=== PATIENT | female | born 1940 | race Caucasian/White ===

== ENCOUNTER → 2023-12-09 19:30 | Outpatient (REF) | payer OTHER, SELFPAY ==
[2023-12-10 13:19] LABS: Urine Albumin Negative (Neg - Trace); Urine Bilirubin Negative (Negative); Urine Character Clear (Clear); Urine Color Yellow; Urine Glucose Negative (Negative); Urine Ketone Negative (Negative); Urine Leukocyte Negative (Negative); Urine Nitrite Positive (Negative); Urine Occult Blood Negative (Negative); Urine Urobilinogen Negative (Neg - 1+)
[2023-12-10 13:32] LABS: Urine Bacteria Many (Negative)
== END ==
LOC: OLABPATH 19:30
PROVIDERS: ATTENDING PHYSICIAN Internal Medicine
DX: F03.90 Unspecified dementia, unspecified severity, without behavioral disturbance, psychotic disturbance, mood disturbance, and anxiety (principal); F41.1 Generalized anxiety disorder
CPT/HCPCS: 36415; 81003; 81015; 87077; 87086; 87186

== ENCOUNTER → 2023-12-10 12:56 | Outpatient (REF) | payer OTHER, SELFPAY ==
[2023-12-10 13:16] LABS: % Basophils 0.8 % (0-2); % Eosinophils 3.2 % (0-6); % Immature Granulocytes 0.2 % (0-0.5); % Lymphocytes 35.4 % (20.5-51.1); % Monocytes 9.7 % (1.7-9.3); % Neutrophils 50.7 % (42.2-75.2); Absolute Eosinophils 0.2 10^3/uL (0-0.7); Absolute Lymphocytes 1.9 10^3/uL (1.2-3.4); Absolute Monocytes 0.5 10^3/uL (0.1-0.6); Absolute Neutrophils 2.7 10^3/uL (1.4-6.5); Hematocrit 37.4 % (37.0-47.0); Hemoglobin 12.5 g/dL (12.0-16.0); Mean Corp Hgb Conc. 33.4 g/dL (33.0-37.0); Mean Corpuscular Volume 89.7 fL (81.0-99.0); Mean Platelet Volume 11.2 fL (7.4-10.4); Nucleated Red Blood Cells % 0 %; Platelet Count 246 10^3/uL (130-400); Red Blood Cell Count 4.17 10^6/uL (4.20-5.40); Red Cell Dist. Width 14.4 % (11.5-14.5); White Blood Cell Count 5.3 10^3/uL (4.8-10.8)
[2023-12-10 13:47] LABS: ALT (SGPT) 16 U/L (0-35); AST (SGOT) 23 U/L (14-36); Albumin 3.8 g/dl (3.5-5.0); Alkaline Phosphatase 75 U/L (38-126); Blood Urea Nitrogen 22 mg/dl (7-17); Calcium 9.5 mg/dl (8.4-10.2); Carbon Dioxide 29 mmol/L (22-30); Chloride 101 mmol/L (98-107); Glucose 115 mg/dl (70-99); Potassium 4.4 mmol/L (3.5-5.1); Sodium 136 mmol/L (135-145); Total Bilirubin 1.1 mg/dl (0.2-1.3); Total Protein 6.6 g/dl (6.3-8.2); eGFR > 60.00
== END ==
LOC: OLABPATH 12:56
PROVIDERS: ATTENDING PHYSICIAN Internal Medicine
DX: F03.90 Unspecified dementia, unspecified severity, without behavioral disturbance, psychotic disturbance, mood disturbance, and anxiety (principal); F41.1 Generalized anxiety disorder
CPT/HCPCS: 36415; 80053; 85025

== ENCOUNTER → 2023-12-15 06:00 | Outpatient (REF) | payer OTHER, SELFPAY ==
[2023-12-16 10:02] LABS: Urine Character Very Cloudy (Clear); Urine Color Yellow
[2023-12-16 10:03] LABS: Urine Albumin Negative (Neg - Trace); Urine Bacteria Many (Negative); Urine Bilirubin Negative (Negative); Urine Glucose Negative (Negative); Urine Ketone Negative (Negative); Urine Leukocyte Trace (Negative); Urine Nitrite Positive (Negative); Urine Occult Blood Negative (Negative); Urine Red Blood Cell 0-2 /HPF (0-2); Urine Urobilinogen Negative (Neg - 1+)
== END ==
LOC: OLABPATH 06:00
PROVIDERS: ATTENDING PHYSICIAN Internal Medicine
DX: N39.0 Urinary tract infection, site not specified (principal)
CPT/HCPCS: 36415; 81003; 81015; 87077; 87086; 87186

== ENCOUNTER → 2024-02-10 12:42 | Outpatient (REF) | payer OTHER, SELFPAY ==
[2024-02-10 13:24] LABS: % Basophils 0.9 % (0-2); % Eosinophils 3.7 % (0-6); % Immature Granulocytes 0.2 % (0-0.5); % Lymphocytes 38.9 % (20.5-51.1); % Monocytes 10.2 % (1.7-9.3); % Neutrophils 46.1 % (42.2-75.2); Absolute Eosinophils 0.2 10^3/uL (0-0.7); Absolute Lymphocytes 1.8 10^3/uL (1.2-3.4); Absolute Monocytes 0.5 10^3/uL (0.1-0.6); Absolute Neutrophils 2.1 10^3/uL (1.4-6.5); Hemoglobin 12.7 g/dL (12.0-16.0); Mean Corp Hgb Conc. 32.6 g/dL (33.0-37.0); Mean Corpuscular Hgb 30.2 pg (27.0-31.0); Mean Corpuscular Volume 92.6 fL (81.0-99.0); Nucleated Red Blood Cells % 0 %; Platelet Count 208 10^3/uL (130-400); Red Blood Cell Count 4.21 10^6/uL (4.20-5.40); White Blood Cell Count 4.6 10^3/uL (4.8-10.8)
[2024-02-10 14:12] LABS: ALT (SGPT) 32 U/L (0-35); AST (SGOT) 31 U/L (14-36); Albumin 4.2 g/dl (3.5-5.0); Alkaline Phosphatase 76 U/L (38-126); Blood Urea Nitrogen 28 mg/dl (7-17); Calcium 10.1 mg/dl (8.4-10.2); Carbon Dioxide 28 mmol/L (22-30); Chloride 103 mmol/L (98-107); Glucose 98 mg/dl (70-99); Potassium 4.5 mmol/L (3.5-5.1); Sodium 137 mmol/L (135-145); Total Bilirubin 1.1 mg/dl (0.2-1.3); Total Protein 7.1 g/dl (6.3-8.2); eGFR > 60.00
[2024-02-10 16:34] LABS: TSH 3.26 uIU/ml (0.47-4.68)
== END ==
LOC: OLABPATH 12:42
PROVIDERS: ATTENDING PHYSICIAN Internal Medicine
DX: D64.9 Anemia, unspecified (principal)
CPT/HCPCS: 36415; 80053; 84443; 85025

== ENCOUNTER → 2024-04-04 11:38 | Outpatient (REF) | payer OTHER, SELFPAY ==
[2024-04-04 12:14] LABS: Urine Albumin Negative (Neg - Trace); Urine Bilirubin Negative (Negative); Urine Character Slightly Cloudy (Clear); Urine Color Yellow; Urine Glucose Negative (Negative); Urine Ketone Negative (Negative); Urine Leukocyte Negative (Negative); Urine Nitrite Positive (Negative); Urine Occult Blood Negative (Negative); Urine Specific Gravity 1.015 (<1.030); Urine Urobilinogen Negative (Neg - 1+)
== END ==
LOC: OLABPATH 11:38
PROVIDERS: ATTENDING PHYSICIAN Internal Medicine
DX: N39.0 Urinary tract infection, site not specified (principal)
CPT/HCPCS: 81003; 87086

== ENCOUNTER 2024-08-22 08:50 | Emergency (ER) | payer OTHER, SELFPAY ==
[2024-08-22 08:54] VITALS: BP 102/62
[2024-08-22 08:59] VITALS: BP 107/53
[2024-08-22 09:00] VITALS: BP 107/53
[2024-08-22 09:04] VITALS: BMI 27.3
--- NOTE | 2024-08-22 09:05 | ED.GENMED ---
History of Present Illness
General
Chief Complaint: Fainting Sensation
Source: patient
Time Seen by Provider: 08/22/24 08:56
History of Present Illness
History of Present Illness:
84-year-old female sent to the emergency room from assisted living where she was observed to have a choking episode while eating breakfast. Reportedly she did pass out. She is currently back to her baseline. She offers no complaints at this time
but does have dementia and so history seems somewhat limited. She denies feeling short of breath at this time. Patient does have a pacemaker.
Past History
Past History
ED Past Medical History: Psychiatric and Other (Dementia)
ED Past Surgical History: None
Social History
Tobacco: Non-smoker
Phy Exam
Physical Exam
Physical Exam:
General: Awake, Alert, Oriented X2. No acute distress.
Vitals: unremarkable
Head: Atraumatic
Eyes: Pupils equal, EOMI
Throat: Airway intact, no exudates
Neck: Trachea midline
Lungs: Clear and equal b/l
Heart: Regular rate, no murmurs
Abd: Soft, Nontender, No pulsatile mass
Neuro: Nonfocal
Skin: Warm, dry, no rash
Extremities: pulses equal b/l, no edema
Course
Orders/Labs/Results
Orders:
Orders
08/22/24 08:55
Electrocardiogram (*1) Urgent
Reason for Study: Syncope
08/22/24 08:56
EKG- Treatment ONCE
08/22/24 09:04
CR Chest - 2 Views Urgent
Comment:
Reason For Exam: choking episode
08/22/24 09:15
Basic Metabolic Panel Urgent
Complete Blood Count/No Diff Urgent
Abnormal Lab Results
08/22/24
09:15
RBC 4.04 L 10^6/uL
(4.20-5.40)
MCH 32.7 H pg
(27.0-31.0)
BUN 27 H mg/dl
(7-17)
Glucose 119 H mg/dl
(70-99)
08/22/24 09:15
08/22/24 09:15
Vital Signs
Initial and Last Documented VS:
Initial Vital Signs
BP
102/62
08/22/24 08:54
Last Documented Vital Signs
Temp Pulse Resp BP Pulse Ox
97.7 F 60 15 102/49 96
08/22/24 08:59 08/22/24 10:30 08/22/24 10:30 08/22/24 10:01 08/22/24 10:30
MDM/Problems Addressed
Differential Diagnosis Includes:
Vasovagal event, dysrhythmia, anemia
MDM/Problems Addressed:
Patient evidently had a coughing or choking episode today. This was followed by an episode of near syncope. Upon arrival here to the emergent the patient seems to be at her baseline. Work appears unremarkable. She is not hypoxic. Chest x-ray
evidence of infiltrate or aspiration. Patient stable for discharge back to her facility.
*Radiology
Radiology exam reviewed: preliminary read by ED provider (No acute abnormality noted)
*Pulse Oximetry
Patient hypoxic: no
*EKG
Interpreted by ED Provider?: Yes
Comparison EKG: changes noted (Now atrial paced)
Heart Rate: 60
Rate: normal
Rhythm: other (Atrial paced)
QRS Pattern: right bundle branch block
Ischemia: non-specific ST changes
*Molded Goods Spot Picker Interpretation
Rate: normal
Interpretation: abnormal
Rhythm: other (Atrial paced)
*Critical Care Note
Total Time (30-74mins, 75-104mins- exclusive of procedures): Not Applicable
ED Attending Note
-
Portions of this chart may have been created with voice recognition software.� Occasional wrong word or��sound alike� substitutions may have occurred due to the inherent limitations of voice recognition software.
Discharge Plan
Departure
Patient Disposition: Home (Routine Discharge)
Date of Disposition: 08/22/24
Time of Disposition: 10:26
Patient with high blood pressure during this ER visit?: No
Condition: Good
Discharge Problem:
Syncope, Choking
Instructions: Syncope (Fainting) (DC), Choking
Prescriptions:
No Action
acetaminophen 500 mg Tablet
1,000 mg PO Q8HPRN PRN (Reason: mild pain/fever)
ascorbic acid (vitamin C) [Vitamin C] 500 mg Tablet
500 mg PO DAILY
montelukast 10 mg Tablet
10 mg PO HS
azelastine 137 mcg (0.1 %) Aerosol,[place]
1 spray INTRANASAL BID
cholecalciferol (vitamin D3) [Vitamin D3] 25 mcg (1,000 unit) Capsule
25 mcg PO DAILY
escitalopram oxalate 20 mg Tablet
30 mg PO DAILY
guaifenesin [Aliza-Tussin] 100 mg/5 mL Liquid
100 mg PO Q6HPRN PRN (Reason: cough)
carboxymethylcellulose sodium [Refresh Tears] 0.5 % Drops
1 drp BOTH EYES DAILYPRN PRN (Reason: dry eye)
losartan-hydrochlorothiazide 100-25 mg tablet
1 tab PO DAILY
ferrous sulfate [FeroSul] 325 mg (65 mg iron) tablet
325 mg PO Q48H
hydralazine 50 mg tablet
50 mg PO BID
Referrals:
Rodney Cartagena DO [Family Provider] -
Interventions
Interventions:
*Risk Screen - Suicide Last Done: 08/22/24 08:59
*General Assessment Last Done: 08/22/24 09:30
*Neglect/Abuse Screening Last Done: 08/22/24 08:59
ED- Fall Risk Assessment Last Done: 08/22/24 09:04
*ED COVID-19 Vaccine History Last Done: 08/22/24 10:52
*Nursing Disposition Last Done: 08/22/24 10:52
ED- Cardiac Assessment Last Done: 08/22/24 09:04
ED- Neurological Assessment Last Done: 08/22/24 09:04
Discharge Date and Time
Discharge Date/Time: 08/22/24 10:53
Print Language: ESTONIAN
[2024-08-22 09:27] LABS: Hematocrit 38.7 % (37.0-47.0); Hemoglobin 13.2 g/dL (12.0-16.0); Mean Corp Hgb Conc. 34.1 g/dL (33.0-37.0); Mean Corpuscular Hgb 32.7 pg (27.0-31.0); Mean Corpuscular Volume 95.8 fL (81.0-99.0); Mean Platelet Volume 9.8 fL (7.4-10.4); Platelet Count 206 10^3/uL (130-400); Red Blood Cell Count 4.04 10^6/uL (4.20-5.40); Red Cell Dist. Width 13.1 % (11.5-14.5); White Blood Cell Count 6.9 10^3/uL (4.8-10.8)
[2024-08-22 09:42] LABS: Blood Urea Nitrogen 27 mg/dl (7-17); Calcium 9.9 mg/dl (8.4-10.2); Carbon Dioxide 26 mmol/L (22-30); Chloride 102 mmol/L (98-107); Estimated Creatinine Clearance 56 ml/min; Glucose 119 mg/dl (70-99); Potassium 4.3 mmol/L (3.5-5.1); Sodium 140 mmol/L (135-145); eGFR > 60.00
[2024-08-22 10:01] VITALS: BP 102/49
== END 2024-08-22 10:53 | disposition home or self-care (01) ==
LOC: EMR 08:50
PROVIDERS: EMERGENCY PHYSICIAN Emergency Medicine; FAMILY PHYSICIAN Internal Medicine
DX: R55 Syncope and collapse (principal); R09.89 Other specified symptoms and signs involving the circulatory and respiratory systems; F03.90 Unspecified dementia, unspecified severity, without behavioral disturbance, psychotic disturbance, mood disturbance, and anxiety; Z95.0 Presence of cardiac pacemaker
CPT/HCPCS: 99285; 71046; 80048; 85027; 93005

== ENCOUNTER → 2024-11-24 14:04 | Outpatient (REF) | payer OTHER, SELFPAY ==
[2024-11-24 15:01] LABS: Blood Urea Nitrogen 30 mg/dl (7-17); Calcium 8.8 mg/dl (8.4-10.2); Carbon Dioxide 22 mmol/L (22-30); Chloride 104 mmol/L (98-107); Glucose 101 mg/dl (70-99); Sodium 136 mmol/L (135-145); eGFR > 60.00
== END ==
LOC: OLABPATH 14:04
PROVIDERS: ATTENDING PHYSICIAN Internal Medicine
DX: R79.0 Abnormal level of blood mineral (principal)
CPT/HCPCS: 36415; 80048

== ENCOUNTER 2025-03-29 10:00 | Emergency (ER) | payer OTHER, SELFPAY ==
[2025-03-29] VITALS (12 sets, daily range): BP systolic 104–136; BP diastolic 42–70; PULSE 66–80; BMI 29.0
--- NOTE | 2025-03-29 10:29 | ED.GENMED ---
History of Present Illness
General
Chief Complaint: Fainting/Passed Out
Source: patient and assisted
Exam Limitations: none
Time Seen by Provider: 03/29/25 10:11
Nursing documentation reviewed up to this point in time: agreed with
History of Present Illness
History of Present Illness:
The patient is an 85-year-old female with hx dementia who presents to the emergency department via EMS after syncopal event this morning. History somewhat limited due to patient's dementia however did contact nurse at facility who states that
patient was sitting at the breakfast table when she lost consciousness. They state that she was unresponsive for almost 5 minutes, however she was breathing. She had a weak pulse at the time. She did apparently have an episode of vomiting shortly
after the incident, although the timing of this remains uncertain. Currently�patient has no complaints. She specifically denies any headache, chest pain, shortness of breath, abdominal pain. She does report mild nausea
No trauma or head injury occurred during the event.
She reports having had a normal morning, including a shower and eating breakfast consisting of biscuits and butter. While sitting at the table, she suddenly passed out without any recollection of the event.
Past History
Past History
ED Past Medical History: Psychiatric and Other (Dementia)
ED Past Surgical History: None
Social History
Tobacco: Non-smoker
Review of Systems
Review of Systems
Unable to obtain full review of systems at this time due to: dementia
Phy Exam
Physical Exam
Physical Exam:
Vitals: Patient's vital signs are stable. Afebrile
General: Patient is well appearing, no acute distress
Skin: Warm and dry, no rashes or lesions
Head: Normocephalic, atraumatic
Eyes: Sclera nonicteric. EOMs intact. No nystagmus.
Throat: Protecting airway
Neck: Normal ROM, no cervical spine tenderness, no meningismus. No JVD
Cardiac: Regular rate and rhythm, no murmurs. 2+ Palpable radial pulses bilaterally.
Pulm: Normal respiratory effort, no wheezes, rales, rhonchi heard on exam
.
Abdomen:Abdomen soft and nontender
Extremities: No evidence of cyanosis or edema. Palpable DP pulses bilaterally.
Neuro: AAOx3. Grossly intact. Strength 5/5 in bilateral upper and lower extremiteis
Psychiatric: Normal affect.
Course
Orders/Labs/Results
Orders:
Orders
03/29/25 10:14
EKG [Electrocardiogram (*1)] Urgent
Reason for Study: Syncope
03/29/25 10:15
EKG- Treatment ONCE
03/29/25 10:18
Complete Blood Count/With Diff Urgent
Urinalysis Reflex To Culture Urgent
Date Specimen was Collected: 03/29/25
Time Specimen was Collected: 10:15
Urine Microscopic Reflex Cult Urgent
Urine Culture Urgent
SARINA Source: U
Specimen Description:
Date Specimen was Collected: 03/29/25
Time Specimen was Collected: 10:15
03/29/25 10:29
pacemaker [Interrogate Pacemaker- Treatment] ONCE
03/29/25 12:19
Comprehensive Metabolic Panel Urgent
Troponin I Urgent
03/29/25 14:11
US Abdomen Complete/Upper Urgent
Comment:
Reason For Exam: LFT elevation, vomiting
03/29/25 16:02
Orthostatic VS- Treatment ONCE
03/29/25 16:27
Cephalexin Monohydrate [Keflex] 500 mg PO NOW STA
Abnormal Lab Results
03/29/25 03/29/25
10:18 12:19
RBC 3.89 L 10^6/uL
(4.20-5.40)
Hct 36.9 L %
(37.0-47.0)
MCH 32.6 H pg
(27.0-31.0)
MPV 10.8 H fL
(7.4-10.4)
Carbon Dioxide 31 H mmol/L
(22-30)
BUN 22 H mg/dl
(7-17)
Glucose 129 H mg/dl
(70-99)
AST 156 H U/L
(14-36)
ALT 216 H U/L
(0-35)
Urine Nitrite (Reflex) Positive A
(Negative)
Leukocyte Esterase Rfl 1+ A
(Negative)
Urine RBC 3-6 A /HPF
(0-2)
Urine WBC (Reflex) 11-15 A /HPF
(0-5)
Urine Bacteria (Reflex) Many A
(Negative)
Urine Albumin (Reflex) 3+ A
(Neg - Trace)
03/29/25 10:18
03/29/25 12:19
Vital Signs
Initial and Last Documented VS:
Initial Vital Signs
Temp Pulse Resp BP Pulse Ox
97.7 F 79 16 109/42 96
03/29/25 10:07 03/29/25 10:07 03/29/25 10:07 03/29/25 10:07 03/29/25 10:07
Last Documented Vital Signs
Temp Pulse Resp BP Pulse Ox
97.7 F 78 18 136/70 94
03/29/25 10:07 03/29/25 16:12 03/29/25 16:12 03/29/25 16:12 03/29/25 16:07
MDM/Problems Addressed
Differential Diagnosis Includes:
Not limited to: Cardiac arrhythmia, pacemaker malfunction, vasovagal syncope, hypoglycemia, seizure, orthostatic hypotension, etc.
MDM/Problems Addressed:
An 85-year-old female who presents to the emergency department following a syncopal episode at a assisted. She also experienced one episode of vomiting but did not sustain any traumatic injury. Upon arrival, she was alert, oriented, and
presented with normal vital signs.
Laboratory evaluations included a CBC, which showed no significant abnormalities, and a chemistry panel that indicated mild dehydration via elevated BUN and transaminitis of unclear etiology. An EKG exhibited paced rhythm without acute changes, and
a pacemaker interrogation showed no arrhythmias. The ultrasound of the abdomen was performed due to non-specific transaminitis, which revealed no acute abnormalities. A urinalysis was suggestive of a possible infection, but contamination was
considered. The patient remained hemodynamically stable and reported no complaints during her ED stay.
Overall impression is syncope secondary to either dehydration vs vasovagal. Do not suspect cardiac etiology. Do not suspect central etiology including seizure vs CVA. Discussed CT head for further evaluation although patient declines. Patient was
given IVF in ED. She has remained hemodynamically stable and asymptomatic. Ultimately feel stable for discharge home w/ primary care/ cardiology f/u. Will cover with abx for possible UTI. Return precautions discussed. Patient and patients son
comfotable w/ plan.
Chronic conditions affecting care:
Pacemaker
Acute Exacerbation and/or Progression of Chronic Illness:
N/A
*Radiology
Radiology exam reviewed: radiology read reviewed
*Pulse Oximetry
Patient hypoxic: no (96%)
*EKG
Interpreted by ED Provider?: Yes
EKG Intrepretation Date: 03/29/25
Interpretation: abnormal
Comparison EKG: changes noted
Heart Rate: 63
Rate: normal
Rhythm: other (Atrial paced)
[place]: normal axis
QRS Pattern: right bundle branch block
Ischemia: no ischemia
*Barrel Centerer Interpretation
Rate: normal
Interpretation: abnormal
Heart Rate: 66
Rhythm: av sequential
*Critical Care Note
Total Time (30-74mins, 75-104mins- exclusive of procedures): Not Applicable
ED Attending Note
-
Portions of this chart may have been created with voice recognition software.� Occasional wrong word or��sound alike� substitutions may have occurred due to the inherent limitations of voice recognition software.
Discharge Plan
Departure
Patient Disposition: Home (Routine Discharge)
Date of Disposition: 03/29/25
Time of Disposition: 16:27
Patient with high blood pressure during this ER visit?: Yes
Condition: Good
Covid-19: Not Applicable
Discharge Problem:
Syncope, Acute UTI
Instructions: Syncope (Fainting) (DC), Urinary tract infection in adults - ED discharge instructions
Prescriptions:
New
cephalexin 500 mg capsule
500 mg PO BID 5 Days Qty: 10 0RF
No Action
acetaminophen 500 mg Tablet
1,000 mg PO Q8HPRN PRN (Reason: mild pain/fever)
ascorbic acid (vitamin C) [Vitamin C] 500 mg Tablet
500 mg PO DAILY
montelukast 10 mg Tablet
10 mg PO HS
azelastine 137 mcg (0.1 %) Aerosol,[place]
1 spray INTRANASAL BID
cholecalciferol (vitamin D3) [Vitamin D3] 25 mcg (1,000 unit) Capsule
25 mcg PO DAILY
escitalopram oxalate 20 mg Tablet
30 mg PO DAILY
guaifenesin [Aliza-Tussin] 100 mg/5 mL Liquid
100 mg PO Q6HPRN PRN (Reason: cough)
carboxymethylcellulose sodium [Refresh Tears] 0.5 % Drops
1 drp BOTH EYES DAILYPRN PRN (Reason: dry eye)
losartan-hydrochlorothiazide 100-25 mg tablet
1 tab PO DAILY
ferrous sulfate [FeroSul] 325 mg (65 mg iron) tablet
325 mg PO Q48H
hydralazine 50 mg tablet
50 mg PO BID
benzonatate 100 mg capsule
100 mg PO Q8HPRN PRN (Reason: cough)
ondansetron HCl [Zofran] 4 mg Tablet
4 mg PO Q6H PRN (Reason: n/v)
loperamide 2 mg Tablet
2 mg PO Q6H PRN (Reason: bowel movement)
Referrals:
Rodney Cartagena DO [Family Provider] - Follow up in 2-3 days
Misha Tsai MD [Active, Cardiology] - Next open appointment
Activity Restrictions/Additional Instructions:
RETURN TO THE EMERGENCY DEPARTMENT WITH ANY FEVERS, CHEST PAIN, SHORTNESS OF BREATH, INTRACTABLE NAUSEA/VOMITING, LIGHTHEADEDNESS/DIZZINESS, REPEAT SYNCOPAL EVENTS, WORSENING IN CURRENT SYMPTOMS, OR ANY OTHER CONCERNS
- As discussed�your liver function test were elevated in the emergency department. You should have these rechecked with your primary care to ensure they are trending down.
- A prescription for an antibiotic has been sent to your pharmacy. Please take this twice a day for the next 5 days to cover for a possible UTI.
- It is important stay well-hydrated.
- Follow-up with primary care/cardiology for further evaluation/management
Monitor your symptoms closely and return to the emergency department with any acute worsening/new symptoms or any other concerns
Interventions
Interventions:
*Risk Screen - Suicide Last Done: 03/29/25 10:07
*General Assessment Last Done: 03/29/25 10:07
*Neglect/Abuse Screening Last Done: 03/29/25 10:07
*ED- Fall Risk Assessment Last Done: 03/29/25 17:00
*ED COVID-19 Vaccine History Last Done: 03/29/25 10:07
*Nursing Disposition Last Done: 03/29/25 17:00
ED- Cardiac Assessment Last Done: 03/29/25 11:00
ED- Neurological Assessment Last Done: 03/29/25 11:00
Discharge Date and Time
Discharge Date/Time: 03/29/25 17:01
Print Language: SRI LANKAN
[2025-03-29 10:38] LABS: % Basophils 0.4 % (0-2); % Eosinophils 2.4 % (0-6); % Immature Granulocytes 0.4 % (0-0.5); % Lymphocytes 23.2 % (20.5-51.1); % Monocytes 5.3 % (1.7-9.3); % Neutrophils 68.3 % (42.2-75.2); Absolute Eosinophils 0.2 10^3/uL (0-0.7); Absolute Lymphocytes 1.7 10^3/uL (1.2-3.4); Absolute Monocytes 0.4 10^3/uL (0.1-0.6); Absolute Neutrophils 4.9 10^3/uL (1.4-6.5); Hematocrit 36.9 % (37.0-47.0); Hemoglobin 12.7 g/dL (12.0-16.0); Mean Corp Hgb Conc. 34.4 g/dL (33.0-37.0); Mean Corpuscular Hgb 32.6 pg (27.0-31.0); Mean Corpuscular Volume 94.9 fL (81.0-99.0); Mean Platelet Volume 10.8 fL (7.4-10.4); Nucleated Red Blood Cells % 0 %; Platelet Count 168 10^3/uL (130-400); Red Blood Cell Count 3.89 10^6/uL (4.20-5.40); Red Cell Dist. Width 12.6 % (11.5-14.5); White Blood Cell Count 7.2 10^3/uL (4.8-10.8)
[2025-03-29 10:49] LABS: Urine Albumin 3+ (Neg - Trace); Urine Bilirubin Negative (Negative); Urine Character Clear (Clear); Urine Color Yellow; Urine Glucose Negative (Negative); Urine Ketone Negative (Negative); Urine Leukocyte 1+ (Negative); Urine Nitrite Positive (Negative); Urine Occult Blood Negative (Negative); Urine Urobilinogen Negative (Neg - 1+); Urine pH 6.5 (5.0-9.0)
[2025-03-29 11:41] LABS: Urine Bacteria Many (Negative)
[2025-03-29 12:59] LABS: ALT (SGPT) 216 U/L (0-35); AST (SGOT) 156 U/L (14-36); Albumin 4.1 g/dl (3.5-5.0); Alkaline Phosphatase 78 U/L (38-126); Blood Urea Nitrogen 22 mg/dl (7-17); Calcium 9.8 mg/dl (8.4-10.2); Carbon Dioxide 31 mmol/L (22-30); Chloride 106 mmol/L (98-107); Estimated Creatinine Clearance 42 ml/min; Glucose 129 mg/dl (70-99); Potassium 4.7 mmol/L (3.5-5.1); Sodium 141 mmol/L (135-145); Total Protein 6.5 g/dl (6.3-8.2); Troponin I < 0.012 ng/ml; eGFR > 60.00
[2025-03-29] MEDS: KEFLEX 500 MG PO (16:30)
== END 2025-03-29 17:01 | disposition home or self-care (01) ==
LOC: EMR 10:00
PROVIDERS: Physician Assistant; EMERGENCY PHYSICIAN Emergency Medicine; FAMILY PHYSICIAN Internal Medicine
DX: N39.0 Urinary tract infection, site not specified (principal); R55 Syncope and collapse; F03.90 Unspecified dementia, unspecified severity, without behavioral disturbance, psychotic disturbance, mood disturbance, and anxiety; I45.10 Unspecified right bundle-branch block
CPT/HCPCS: 99284; 76700; 80053; 81003; 81015; 84484; 85025; 87086; 93005

== ENCOUNTER 2025-05-24 09:18 | Emergency (ER) | payer OTHER, SELFPAY ==
[2025-05-24 09:22] VITALS: BP 92/72
[2025-05-24 09:24] VITALS: BP 92/72
--- NOTE | 2025-05-24 09:37 | ED.GENMED ---
Addendum entered and electronically signed by Alo Damon PA-C 05/27/25 07:26:
On cephalexin, appropriate per C&S
Original Note:
History of Present Illness
General
Chief Complaint: Fainting/Passed Out
Time Seen by Provider: 05/24/25 09:20
History of Present Illness
History of Present Illness:
85-year-old female history of dementia, pacemaker presenting with syncopal episode. Per EMS, [facility] when patient was found unresponsive for unknown period of time. Patient states that she was eating pancakes and eggs
when she had a syncopal episode. Patient states that she woke up with ambulance. Patient states that she did not strike her head. Patient states that she feels nauseous. Patient denies any other complaints including no chest pain, shortness of
breath, headache, numbness, weakness or tingling. Patient states that she felt her normal self when she woke up this morning.
I attempted to call facility for additional information but no answer. Discussed with patient's son who states that facility states that patient was sitting down eating breakfast when she became 'unresponsive' while sitting having breakfast.
States that patient was sitting up, eyes were 'flickering' but open. Son states that this happened multiple times in the past most recently in March, diagnosed with dehydration and a UTI. Son states that patient has been her typical self for the
past few days with no complaints.
Past History
Past History
ED Past Medical History: Psychiatric and Other (Dementia)
ED Past Surgical History: None
Social History
Tobacco: Non-smoker
Phy Exam
Physical Exam
Physical Exam:
General: Alert, no acute distress
Head: NCAT
Eyes: clear conjunctiva
Neck: supple
Cardiac: regular rate and rhythm, no murmur
Lungs: clear to auscultation bilaterally. No wheezes, rales, or rhonchi. Speaking full unlabored sentences. No respiratory distress.
Abdomen: soft, nondistended nontender. No rebound or guarding.
MSK: no lower extremity edema bilaterally. No deformity
Skin: warm, dry
Neuro: Alert and oriented x3. no focal deficits
Course
Orders/Labs/Results
Orders:
Orders
05/24/25 09:21
Electrocardiogram (*1) Urgent
Reason for Study: Syncope
EKG- Treatment ONCE
05/24/25 09:31
Complete Blood Count/With Diff Urgent
Comprehensive Metabolic Panel Urgent
05/24/25 09:43
Troponin I Urgent
05/24/25 09:54
0.9% Sodium Chloride 1000 ml [Nss] 1,000 ml IV BOLUS
05/24/25 10:52
UA Reflex to Culture [Urinalysis Reflex To Culture] Urgent
Date Specimen was Collected: 05/24/25
Time Specimen was Collected: 10:26
Urine Microscopic Reflex Cult Urgent
Urine Culture Urgent
SARINA Source: U
Specimen Description:
Date Specimen was Collected: 05/24/25
Time Specimen was Collected: 10:26
05/24/25 11:59
CefTRIAXone [Rocephin] 1,000 mg IV NOW STA
05/24/25 12:16
Sterile Water [Sterile Water For Injection] 20 ml .ROUTE .STK-MED
Abnormal Lab Results
05/24/25 05/24/25
09:31 10:52
RBC 4.12 L 10^6/uL
(4.20-5.40)
MCH 31.8 H pg
(27.0-31.0)
MPV 10.6 H fL
(7.4-10.4)
Neutrophils % 42.0 L %
(42.2-75.2)
BUN 22 H mg/dl
(7-17)
Glucose 184 H mg/dl
(70-99)
Total Bilirubin 1.4 H mg/dl
(0.2-1.3)
AST 88 H U/L
(14-36)
ALT 104 H U/L
(0-35)
Urine Nitrite (Reflex) Positive A
(Negative)
Urine Bacteria (Reflex) Many A
(Negative)
Urine Albumin (Reflex) 2+ A
(Neg - Trace)
05/24/25 09:31
05/24/25 09:31
Vital Signs
Initial and Last Documented VS:
Initial Vital Signs
Pulse Resp BP Pulse Ox
64 11 92/72 96
05/24/25 09:22 05/24/25 09:22 05/24/25 09:22 05/24/25 09:22
Last Documented Vital Signs
Temp Pulse Resp BP Pulse Ox
98.3 F 68 13 126/53 96
05/24/25 09:24 05/24/25 12:15 05/24/25 10:30 05/24/25 12:00 05/24/25 10:30
MDM/Problems Addressed
Differential Diagnosis Includes:
BOBBY, electrolyte abnormality, UTI, pacemaker malfunction, NSTEMI
MDM/Problems Addressed:
Results reviewed. Pacemaker interrogation showed no events today to explain unresponsive episode. WBC 6.4. Electrolytes, creatinine within normal limits. Mildly elevated LFTs that improved from previous in March 2025. UA consistent with UTI.
Ordered ceftriaxone which was susceptible in previous cultures. Vital stable. Patient tolerating p.o. Patient at baseline mental status. Discussed results with patient and son. Stable for discharge back to facility with keflex
Comment
Comment:
Labs reviewed. Significant for WBC 6.4. Hemoglobin stable at 13.1. Mild transaminitis improved from previous. Pacemaker interrogation shows no events today to explain unresponsive
*Pulse Oximetry
SaO2: 96
Oxygen Mode of Delivery: Room air
Patient hypoxic: no
*EKG
Interpreted by ED Provider?: Yes (EKG shows paced rhythm at 60 bpm with NE 170 QTc 476 no acute ischemic changes, similar to previous EKG on 03/29/2025)
*Critical Care Note
Total Time (30-74mins, 75-104mins- exclusive of procedures): Not Applicable
Data Reviewed
Review of Other/Old Records Reveals: Records (On chart review, patient was seen here in the ER on 03/29/2025 for similar episode. At that time patient had a syncopal episode while sitting at the breakfast table, had nausea and vomiting. Patient
workup showed possible UTI versus contamination but is ultimately discharged back to facility)
ED Attending Note
-
Portions of this chart may have been created with voice recognition software.� Occasional wrong word or��sound alike� substitutions may have occurred due to the inherent limitations of voice recognition software.
Discharge Plan
Departure
Patient Disposition: Home (Routine Discharge)
Date of Disposition: 05/24/25
Time of Disposition: 12:01
Patient with high blood pressure during this ER visit?: No
Discharge Problem:
UTI (urinary tract infection)
Instructions: Urinary tract infections in adults
Prescriptions:
New
cephalexin 500 mg capsule
500 mg PO TID 7 Days Qty: 21 0RF
No Action
acetaminophen 500 mg Tablet
1,000 mg PO Q8HPRN PRN (Reason: mild pain/fever)
ascorbic acid (vitamin C) [Vitamin C] 500 mg Tablet
500 mg PO DAILY
montelukast 10 mg Tablet
10 mg PO HS
azelastine 137 mcg (0.1 %) Aerosol,[place]
1 spray INTRANASAL BID
cholecalciferol (vitamin D3) [Vitamin D3] 25 mcg (1,000 unit) Capsule
25 mcg PO DAILY
escitalopram oxalate 20 mg Tablet
30 mg PO DAILY
guaifenesin [Aliza-Tussin] 100 mg/5 mL Liquid
100 mg PO Q6HPRN PRN (Reason: cough)
carboxymethylcellulose sodium [Refresh Tears] 0.5 % Drops
1 drp BOTH EYES DAILYPRN PRN (Reason: dry eye)
losartan-hydrochlorothiazide 100-25 mg tablet
1 tab PO DAILY
ferrous sulfate [FeroSul] 325 mg (65 mg iron) tablet
325 mg PO Q48H
hydralazine 50 mg tablet
50 mg PO BID
benzonatate 100 mg capsule
100 mg PO Q8HPRN PRN (Reason: cough)
ondansetron HCl [Zofran] 4 mg Tablet
4 mg PO Q6HPRN PRN (Reason: NAUSEA)
loperamide 2 mg Tablet
2 mg PO Q6HPRN PRN (Reason: bowel movement)
Referrals:
Rodney Cartagena, DO [Family Provider]
Activity Restrictions/Additional Instructions:
Follow-up with primary care doctor in 1 to 2 days
Take Keflex 3 times daily for the next 7 days
Return to emergency department for fever, persistent vomiting, inability to tolerate liquids or new/worsening symptoms
Interventions
Interventions:
*Risk Screen - Suicide Last Done: 05/24/25 09:26
*General Assessment Last Done: 05/24/25 09:49
*Neglect/Abuse Screening Last Done: 05/24/25 09:26
*ED- Fall Risk Assessment Last Done: 05/24/25 09:49
*ED COVID-19 Vaccine History Last Done: 05/24/25 09:49
*Nursing Disposition Last Done: 05/24/25 14:47
ED- Cardiac Assessment Last Done: 05/24/25 09:47
ED- Neurological Assessment Last Done: 05/24/25 09:47
Discharge Date and Time
Discharge Date/Time: 05/24/25 14:48
Print Language: [id number]
[2025-05-24 09:38] LABS: Hematocrit 38.8 % (37.0-47.0); Hemoglobin 13.1 g/dL (12.0-16.0); Mean Corp Hgb Conc. 33.8 g/dL (33.0-37.0); Mean Corpuscular Volume 94.2 fL (81.0-99.0); Nucleated Red Blood Cells % 0 %; Platelet Count 176 10^3/uL (130-400); Red Cell Dist. Width 13.1 % (11.5-14.5)
[2025-05-24 09:51] LABS: ALT (SGPT) 104 U/L (0-35); AST (SGOT) 88 U/L (14-36); Albumin 4.2 g/dl (3.5-5.0); Alkaline Phosphatase 75 U/L (38-126); Blood Urea Nitrogen 22 mg/dl (7-17); Calcium 9.2 mg/dl (8.4-10.2); Carbon Dioxide 24 mmol/L (22-30); Chloride 106 mmol/L (98-107); Glucose 184 mg/dl (70-99); Potassium 4.0 mmol/L (3.5-5.1); Sodium 138 mmol/L (135-145); Total Protein 6.6 g/dl (6.3-8.2); eGFR > 60.00
[2025-05-24] MEDS: NSS 1000 IV (09:56)
[2025-05-24 10:00] VITALS: BP 108/50
[2025-05-24 10:57] LABS: Troponin I < 0.012 ng/ml
[2025-05-24 10:58] LABS: Urine Character Slightly Cloudy (Clear)
[2025-05-24 11:00] VITALS: BP 122/61
[2025-05-24 11:34] LABS: Urine Red Blood Cell 0-2 /HPF (0-2); Urine White Cell 0-2 /HPF (0-5)
[2025-05-24 12:00] VITALS: BP 126/53
[2025-05-24] MEDS: ROCEPHIN 1000 MG IV (12:18)
== END 2025-05-24 14:48 | disposition home or self-care (01) ==
LOC: EMR 09:18
PROVIDERS: EMERGENCY PHYSICIAN Emergency Medicine; FAMILY PHYSICIAN Internal Medicine
DX: R55 Syncope and collapse (principal); R11.0 Nausea; N39.0 Urinary tract infection, site not specified; F03.90 Unspecified dementia, unspecified severity, without behavioral disturbance, psychotic disturbance, mood disturbance, and anxiety; Z95.0 Presence of cardiac pacemaker; Z91.048 Other nonmedicinal substance allergy status
CPT/HCPCS: 99284; 96374; 96361; 93288; 80053; 81003; 81015; 84484; 85025; 87077; 87086; 87186; 93005

== ENCOUNTER 2025-08-07 09:21 | Emergency (ER) | payer OTHER, SELFPAY ==
[2025-08-07] VITALS (8 sets, daily range): BP systolic 79–104; BP diastolic 33–51
--- NOTE | 2025-08-07 10:01 | ED.GENMED ---
Addendum entered and electronically signed by Krista Hart PA-C 08/10/25 07:07:
Urine culture positive for E. coli, sensitive to cefazolin, patient is on Keflex no treatment change required
Original Note:
History of Present Illness
General
Chief Complaint: Fainting/Passed Out
Source: patient
Exam Limitations: none
Time Seen by Provider: 08/07/25 09:56
History of Present Illness
History of Present Illness:
See MDM
Past History
Past History
ED Past Medical History: Psychiatric and Other (Dementia)
ED Past Surgical History: None
Social History
Tobacco: Non-smoker
Phy Exam
Physical Exam
Physical Exam:
See MDM
Course
Orders/Labs/Results
Orders:
Orders
08/07/25 09:26
Electrocardiogram (*1) Urgent
Reason for Study: Syncope
EKG- Treatment ONCE
08/07/25 10:10
Complete Blood Count/With Diff Urgent
Comprehensive Metabolic Panel Urgent
Troponin I Urgent
08/07/25 13:24
0.9% Sodium Chloride 1000 ml [Nss] 1,000 ml IV BOLUS
08/07/25 13:31
Urinalysis Reflex To Culture Urgent
Date Specimen was Collected: 08/07/25
Time Specimen was Collected: 13:29
Urine Microscopic Reflex Cult Urgent
Urine Culture Urgent
SARINA Source: U
Specimen Description:
Date Specimen was Collected: 08/07/25
Time Specimen was Collected: 13:29
08/07/25 15:37
Cephalexin Monohydrate [Keflex] 500 mg PO NOW STA
Abnormal Lab Results
08/07/25 08/07/25
10:10 13:31
RBC 4.04 L 10^6/uL
(4.20-5.40)
MCHC 31.2 L g/dL
(33.0-37.0)
MPV 10.6 H fL
(7.4-10.4)
Absolute Lymphs (auto) 1.1 L 10^3/uL
(1.2-3.4)
Lymphocytes % 16.8 L %
(20.5-51.1)
BUN 21 H mg/dl
(7-17)
Glucose 162 H mg/dl
(70-99)
AST 120 H U/L
(14-36)
ALT 134 H U/L
(0-35)
Urine Nitrite (Reflex) Positive A
(Negative)
Leukocyte Esterase Rfl 1+ A
(Negative)
Urine Bacteria (Reflex) Many A
(Negative)
Urine Albumin (Reflex) 2+ A
(Neg - Trace)
08/07/25 10:10
08/07/25 10:10
Vital Signs
Initial and Last Documented VS:
Initial Vital Signs
Temp Pulse Resp BP Pulse Ox
97.9 F 66 18 96/51 93
08/07/25 09:23 08/07/25 09:23 08/07/25 09:23 08/07/25 09:23 08/07/25 09:23
Last Documented Vital Signs
Temp Pulse Resp BP Pulse Ox
97.9 F 66 18 104/43 94
08/07/25 09:23 08/07/25 13:30 08/07/25 09:23 08/07/25 15:00 08/07/25 15:00
MDM/Problems Addressed
Differential Diagnosis Includes:
Note:
CHIEF COMPLAINT(S)
Unresponsiveness and potential syncope while eating.
HISTORY OF PRESENT ILLNESS
The patient is an 85-year-old female who experienced an episode of unresponsiveness while eating eggs. According to reports, she appeared slumped over and stopped talking during this episode. There is no recollection from the patient regarding any
premonitory symptoms before the event, and it is unclear how long the episode lasted. Currently, the patient reports no complaints and feels like her usual self. She has no weakness or headache and describes today as a typical day.
PHYSICAL EXAM
General: Alert, no acute distress. Lying in bed comfortably.
Skin: Warm, dry.
Head: Normocephalic, atraumatic
Neck: Appears supple, trachea midline.
Eyes, Ears, Nose, Mouth, and Throat: Moist mucous membranes
Cardiovascular: No signs of cyanosis. Regular rate and rhythm
Respiratory: Respirations are non-labored.
Abdomen: Non-distended and nontender
Musculoskeletal: No deformities. No leg edema
Neurological: No focal neurological deficit observed.
Psychiatric: Cooperative, appropriate mood and affect.
ELECTROCARDIOGRAM (EKG)
Normal sinus rhythm at 63 bpm. Incomplete right bundle branch block. Normal axis. No ST elevation
SUMMARY OF ENCOUNTER
The patient was seen in the emergency department after an episode of unresponsiveness while eating, potentially representing syncope. An EKG was performed, which appeared normal. The examination did not reveal any acute abnormalities, and currently,
the patient reports feeling back to her normal state.
MEDICAL DECISION MAKING
- Complexity of Data Reviewed: None specific noted.
- Risk: Consideration of admission/observation was made due to the episode of unresponsiveness. However, given the normal work-up and the patients return to baseline without concerning symptoms, outpatient management with follow-up is deemed
appropriate.
DIAGNOSIS
- Syncope, unspecified (ICD-10: R55).
SUMMARY OF ENCOUNTER
The patient, an 85-year-old female, was seen in the emergency department following an episode of unresponsiveness while eating, suggestive of syncope. Upon evaluation, it was noted that episodes like this have occurred in the past when she had a
urinary tract infection. The patients urine showed evidence of infection. In light of her history with urinary tract infections, which were previously bacon-sensitive, treatment with cephalexin was initiated. The son expressed no concern about cardiac
syncope, as this pattern was consistent with past urinary tract infections.
PLAN
Start treatment with cephalexin for urinary tract infection. Discuss with the patient the importance of following up with primary care for further evaluation and work-up for possible syncope.
PATIENT EDUCATION AND COUNSELING
Advised the patient and her son about the potential relationship between urinary tract infections and her syncopal episodes. Emphasized the significance of completing the prescribed antibiotic course and arranged for follow-up with primary care for
comprehensive evaluation and management of syncope.
FOLLOW-UP INSTRUCTIONS
Please follow up with the primary care physician to continue evaluation and work-up for the suspected syncope.
MEDICATION RECONCILIATION
Cephalexin was prescribed to treat the urinary tract infection.
MEDICAL DECISION MAKING
- Number and Complexity of Problems Addressed: Chronic conditions affecting care: Potential syncope attributed to past urinary tract infections.
- Data:
- Category 1: Urine test showing evidence of infection.
- Category 2: No external records or consulting from specialty care involved.
- Category 3: Informed discussions with the son regarding the history of similar symptoms linked to urinary tract infections.
- Risk: Consideration of Admission/Observation: The possibility of escalation of care, including admission/observation, was entertained due to the syncope episode. However, outpatient management was deemed suitable following reassuring work-up
results indicating no acute life-threatening issues, and the patients stable and improved condition. Additionally, prescription medication was administered to treat the diagnosed UTI.
DIAGNOSIS
- Syncope, unspecified (ICD-10: R55).
- Urinary tract infection (ICD-10: N39.0).
*Pulse Oximetry
SaO2: 93
Oxygen Mode of Delivery: Room air
Patient hypoxic: no
*Critical Care Note
Total Time (30-74mins, 75-104mins- exclusive of procedures): Not Applicable
ED Attending Note
-
Portions of this chart may have been created with voice recognition software.� Occasional wrong word or��sound alike� substitutions may have occurred due to the inherent limitations of voice recognition software.
Discharge Plan
Departure
Patient Disposition: Home (Routine Discharge)
Date of Disposition: 08/07/25
Time of Disposition: 15:40
Patient with high blood pressure during this ER visit?: No
Discharge Problem:
Acute UTI
Instructions: Urinary tract infection in adults - ED (DC)
Prescriptions:
New
cephalexin 500 mg capsule
500 mg PO BID 5 Days Qty: 10 0RF
No Action
acetaminophen 500 mg Tablet
1,000 mg PO Q6HPRN PRN (Reason: mild pain/fever)
ascorbic acid (vitamin C) [Vitamin C] 500 mg Tablet
500 mg PO DAILY
montelukast 10 mg Tablet
10 mg PO HS
azelastine 137 mcg (0.1 %) Aerosol,[place]
1 spray INTRANASAL BID
cholecalciferol (vitamin D3) [Vitamin D3] 25 mcg (1,000 unit) Capsule
25 mcg PO DAILY
escitalopram oxalate 20 mg Tablet
30 mg PO DAILY
guaifenesin [Aliza-Tussin] 100 mg/5 mL Liquid
100 mg PO Q6HPRN PRN (Reason: cough)
losartan-hydrochlorothiazide 100-25 mg tablet
1 tab PO DAILY
ferrous sulfate [FeroSul] 325 mg (65 mg iron) tablet
325 mg PO Q48H
hydralazine 50 mg tablet
50 mg PO BID
benzonatate 100 mg capsule
100 mg PO Q8HPRN PRN (Reason: cough)
ondansetron HCl [Zofran] 4 mg Tablet
4 mg PO Q6HPRN PRN (Reason: NAUSEA)
loperamide 2 mg Tablet
2 mg PO Q6HPRN PRN (Reason: bowel movement)
carboxymethylcellulose sodium [Refresh Tears] 0.5 % drops
1 drp BOTH EYES DAILY
Referrals:
UNKNOWN - PT DOES,NOT KNOW [Family Provider]
Activity Restrictions/Additional Instructions:
Please return for any worsening symptoms.
You may return at any time if you have further concerns.
Please follow up with your doctor at the first available appointment, preferably this week.
Thank you for choosing [facility].
Interventions
Interventions:
*Risk Screen - Suicide Last Done: 08/07/25 09:23
*General Assessment Last Done: 08/07/25 09:23
*Neglect/Abuse Screening Last Done: 08/07/25 10:01
*ED- Fall Risk Assessment Last Done: 08/07/25 10:01
*ED COVID-19 Vaccine History Last Done: 08/07/25 10:01
*ED Influenza Vaccine History Last Done: 08/07/25 10:01
ED- Cardiac Assessment Last Done: 08/07/25 10:01
ED- Neurological Assessment Last Done: 08/07/25 10:01
Discharge Date and Time
Print Language: FIJIAN
[2025-08-07 10:31] LABS: Hematocrit 39.7 % (37.0-47.0); Hemoglobin 12.4 g/dL (12.0-16.0); Mean Corp Hgb Conc. 31.2 g/dL (33.0-37.0); Mean Corpuscular Volume 98.3 fL (81.0-99.0); Nucleated Red Blood Cells % 0 %; Platelet Count 170 10^3/uL (130-400); Red Cell Dist. Width 13.5 % (11.5-14.5)
[2025-08-07 10:44] LABS: ALT (SGPT) 134 U/L (0-35); AST (SGOT) 120 U/L (14-36); Albumin 4.2 g/dl (3.5-5.0); Alkaline Phosphatase 68 U/L (38-126); Blood Urea Nitrogen 21 mg/dl (7-17); Calcium 9.2 mg/dl (8.4-10.2); Carbon Dioxide 25 mmol/L (22-30); Chloride 106 mmol/L (98-107); Glucose 162 mg/dl (70-99); Potassium 4.2 mmol/L (3.5-5.1); Sodium 140 mmol/L (135-145); Total Protein 6.6 g/dl (6.3-8.2); eGFR > 60.00
[2025-08-07 10:56] LABS: Troponin I < 0.012 ng/ml
[2025-08-07] MEDS: NSS 1000 IV (13:34)
[2025-08-07 13:59] LABS: Urine Character Slightly Cloudy (Clear)
[2025-08-07 14:47] LABS: Urine Red Blood Cell 0-2 /HPF (0-2); Urine Urothelial Cell 0-2 /LPF (FEW); Urine White Cell 0-2 /HPF (0-5)
[2025-08-07] MEDS: KEFLEX 500 MG PO (15:45)
== END 2025-08-07 16:01 | disposition home or self-care (01) ==
LOC: EMR 09:21
PROVIDERS: EMERGENCY PHYSICIAN Student in an Organized Health Care Education/Training Program
DX: N39.0 Urinary tract infection, site not specified (principal); I45.10 Unspecified right bundle-branch block; F03.90 Unspecified dementia, unspecified severity, without behavioral disturbance, psychotic disturbance, mood disturbance, and anxiety
CPT/HCPCS: 99284; 96360; 80053; 81003; 81015; 84484; 85025; 87077; 87086; 87186; 93005